=== PATIENT | male | born 1960 | race Caucasian/White ===

== ENCOUNTER → 2017-05-25 | Outpatient (CLI) | payer OTHER ==
--- NOTE | 2017-05-25 09:35 | US ---
EXAMINATION TYPE: US abdomen limited DATE OF EXAM: 05/25/2017 COMPARISON: CT, US 2009 CLINICAL HISTORY: R07.9 CHEST PAIN. Had episode chest pain which radiated to umbilical area; denies c hest pain today; HTN EXAM MEASUREMENTS: Liver Length: 13.8 cm Gallbladder Wall: 0.2 cm CBD: 0.4 cm Right Kidney: 11.3 x 6.3 x 5.4 cm Pancreas: hyperechoic Liver: There is mild coarsening and hyperechogenicity of the hepatic parenchyma with diminished visu alization of the portal triads and geographic regions of hypoattenuation involving caudate lobe and a n segment IVb. Gallbladder: wnl Evidence for sonographic Shi's sign: No CBD: wnl Right Kidney: wnl IMPRESSION: Mild hepatic steatosis with focal areas of hypoattenuation involving the caudate lobe and segment IVb of the liver, most commonly relating to focal fatty sparing. These areas are not definitely identifi ed on the prior CT, however this was dated 08/01/2010. If there is clinical concern dynamic enhanced abdominal CT or MR could be performed (liver mass protocol).
== END | disposition home or self-care (01) ==
LOC: RADUSWWP 08:19
PROVIDERS: ATTEND Family Medicine
DX: K76.0 Fatty (change of) liver, not elsewhere classified (principal); R07.9 Chest pain, unspecified
CPT/HCPCS: 76705

== ENCOUNTER → 2017-06-01 | Outpatient (CLI) | payer OTHER ==
--- NOTE | 2017-06-01 08:42 | CT ---
EXAMINATION TYPE: CT abdomen pelvis w con DATE OF EXAM: 06/01/2017 COMPARISON: 1025 HISTORY: Abdominal pain CT DLP: 1299 mGycm CONTRAST: CT scan of the abdomen and pelvis is performed with Oral Contrast and with IV Contrast, patient injec jen with 100 ml mL of Omnipaque 300. FINDINGS: LUNG BASES-: No visible nodule. No infiltrate. There is evidence of mild cardiomegaly. LIVER/GB: No calcified gallstones. No space occupying hepatic lesion. Biliary tree is of normal ca liber. PANCREAS: No inflammation. No distinct mass. SPLEEN: No splenic enlargement. No lesion seen. ADRENALS: No nodule. No thickening. KIDNEYS/BLADDER: No hydronephrosis. No nephrolithiasis. No disctinct renal mass. Urinary bladder w all thickening may reflect underlying cystitis. Please note the urinary bladder is not ideally disten ded however. BOWEL: Normal appendix. Normal bowel caliber. No inflammation. Diverticulosis of the sigmoid colon without diverticulitis. GENITAL ORGANS: No gross abnormality. LYMPH NODES: No greater than 1cm abdominal or pelvic lymph nodes are appreciated. AORTA: No significant abnormality. OSSEOUS STRUCTURES: No significant abnormality is seen. OTHER: No significant additional abnormality is seen. IMPRESSION: 1. Correlate for cystitis. 2. Sigmoid diverticulosis without diverticulitis.
== END ==
LOC: RADCTMAIN 06:48
PROVIDERS: ATTEND Family Medicine
DX: K57.30 Diverticulosis of large intestine without perforation or abscess without bleeding (principal)
CPT/HCPCS: 74177; Q9967

== ENCOUNTER 2019-10-24 17:02 | Observation (INO) | payer BC ==
[2019-10-24 18:08] LABS: Basophils # (A) 0.1 k/uL (0-0.2); Basophils % (A) 1 %; Eosinophils # (A) 0.2 k/uL (0-0.7); Eosinophils % (A) 3 %; HCT 47.5 % (39.0-53.0); HGB 15.9 gm/dL (13.0-17.5); Lymphocytes # (A) 2.4 k/uL (1.0-4.8); Lymphocytes % (A) 32 %; MCH 32.8 pg (25.0-35.0); MCHC 33.4 g/dL (31.0-37.0); MCV 98.1 fL (80.0-100.0); Mean Platelet Volume 7.5; Monocytes # (A) 0.5 k/uL (0-1.0); Monocytes % (A) 7 %; Neutrophils # (A) 4.1 k/uL (1.3-7.7); Neutrophils % (A) 55 %; Platelet Count 299 k/uL (150-450); RBC 4.84 m/uL (4.30-5.90); RDW 13.3 % (11.5-15.5); WBC 7.4 k/uL (3.8-10.6)
[2019-10-24 18:21] LABS: Partial Thromboplastin Time 24.3 sec (22.0-30.0); Prothrombin Time 10.1 sec (9.0-12.0)
[2019-10-24 18:23] LABS: ALT 25 U/L (4-49); AST 31 U/L (17-59); African American GFR (CKD) >90 (>60 ml/min/1.73 sqM); Albumin 3.7 g/dL (3.5-5.0); Alkaline Phosphatase 107 U/L (38-126); Anion Gap 6 mmol/L; Blood Urea Nitrogen 14 mg/dL (9-20); Calcium 8.8 mg/dL (8.4-10.2); Carbon Dioxide 22 mmol/L (22-30); Chloride 109 mmol/L (98-107); Glucose 81 mg/dL (74-99); Magnesium 2.1 mg/dL (1.6-2.3); Non-African American GFR(CKD) >90 (>60 ml/min/1.73 sqM); Potassium 4.6 mmol/L (3.5-5.1); Sodium 137 mmol/L (137-145); Total Bilirubin 0.4 mg/dL (0.2-1.3); Total Protein 6.5 g/dL (6.3-8.2)
--- NOTE | 2019-10-24 18:40 | CT ---
EXAMINATION TYPE: CT angio thor/abd pel aorta DATE OF EXAM: 10/24/2019 COMPARISON: HISTORY: Chest pain with bilateral arm numbness. CT DLP: 2007.7 mGycm Automated exposure control for dose reduction was used. CONTRAST: Performed with IV Contrast, patient injected with 100 mL of Isovue 370. Multiple axial sections were obtained from the thoracic inlet to the floor the pelvis without and sub sequently with intravenous contrast. There are 3-D post processed images. There are a few small low-density calcifications in the right kidney. There is no hydronephrosis. The lungs are clear of infiltrate. There is no evidence of a pulmonary mass. Heart size is fairly normal . There is no pericardial effusion. There is no pleural effusion. There is no mediastinal adenopathy. Liver spleen stomach pancreas gallbladder appear normal. Bile ducts are not dilated. There is satisfa ctory contrast opacification of the kidneys. There is no hydronephrosis. There is no adrenal mass. There is no retroperitoneal adenopathy. There are numerous sigmoid diverticula. Bladder distends smoo thly. There is no inguinal hernia. There is no free fluid in the pelvis. There is normal contrast opacification of the thoracic aorta. There is no aneurysm or dissection. The ascending aorta measures 3.8 cm. I see no filling defects in the pulmonary arteries. There are no hi lar masses. There is patency of the celiac artery and superior mesenteric artery. There is bilateral patency of t he renal arteries. There is variable plaque formation in the lower abdominal aorta. There is no abdom inal aortic aneurysm. There is posterior plaque in the lower abdominal aorta that measures up to 9 mm . There is arterial flow in the iliac and femoral arteries bilaterally. There is extensive plaque forma tion in the iliac arteries with lumen narrowing in multiple segments up to 50%. There is bilateral ar terial flow in the proximal femoral arteries. Bony pelvis is intact. Thoracic and lumbar spine are intact. The bony thorax is intact. There is no e vidence of compression fracture in the spine. Shoulder joints are intact. IMPRESSION: No evidence of aortic aneurysm or dissection. Atherosclerotic vascular disease as above. Multiple are as of stenosis up to 50% in the iliac arteries. Sigmoid diverticulosis without diverticulitis.
--- NOTE | 2019-10-24 18:51 | ED ---
Chest Pain HPI - General Chief Complaint: Chest Pain Stated Complaint: chest pain Time Seen by Provider: 10/24/19 17:35 Source: patient, EMS Mode of arrival: EMS Limitations: no limitations - History of Present Illness Initial Comments: The patient is a 59-year-old male with past medical history of hypertension who presents to the emergency room with reported chest pain. He states that his symptoms started yesterday. It is a sharp cramping sensation which began in his abdomen and has progressed up to his chest. It is intermittent in nature. Owen es any provocative factors. He does not take any medications for his symptoms. Pain did reoccur today and this made him fearful therefore he went into Dr. Florentino's office. Dr. Florentino performed EKG and had the patient transferred to the hospital for further evaluation. He denies previous history of cardiac disease or arrhythmia. He is a smoker with history of high blood pressure. States he smokes 2 packs a day. Also has a large family history of cardiac disease. Denies previous stress testing or catheterization. No active chest pain at this time. He did receive 324 mg of chewable aspirin from EMS and 2 nitro. States the nitro did prove his symptoms significantly. He admits to associated diaphoresis and nausea. Denies any vomiting. States the pain does radiate in between his shoulder blades into his left shoulder. Does have numbness and tingling in his bilateral upper extremities. No lower abdominal pain. Denies any pain into his lower extremity. No calf pain or swelling. No pedal edema. Denies any fevers or chills. No cough or hemoptysis. No history of DVT or PE. There are no alleviating, precipitating or modifying factors - Related Data Home Medications Medication Instructions Recorded Confirmed Lisinopril [Zestril] 10 mg PO QAM 05/15/16 10/24/19 Magnesium Oxide [Mag-Ox] 250 mg PO DAILY 10/24/19 10/24/19 Omeprazole 20 mg PO DAILY 10/24/19 10/24/19 valACYclovir [Valtrex] 500 mg PO DAILY 10/24/19 10/24/19 Previous Rx's Medication Instructions Recorded Nicotine 21Mg/24Hr Patch [Habitrol] 1 each TRANSDERM DAILY #30 patch 10/25/19 Allergies Allergy/AdvReac Type Severity Reaction Status Date / Time No Known Allergies Allergy Verified 10/24/19 19:08 Review of Systems ROS Statement: Those systems with pertinent positive or pertinent negative responses have been documented in the HPI. ROS Other: All systems not noted in ROS Statement are negative. EKG Findings - EKG Comments: EKG Findings:: EKG performed at 1710 and demonstrates a sinus rhythm with frequent PVCs. Rate of 94. NM interval 178. QRS 78. QTC of 500. No acute ST segment elevations. There are inverted T waves with some depression in 2, 3 and aVF. Also some mild depression in V5 and V6. Repeat EKG performed at 1741 demonstrates a sinus rhythm with frequent PVCs. NM interval 136. QRS 84. QTC of 510. No acute ST segment elevations patient's. Continues to have some inverted T waves with depressions in the inferior and lateral leads Past Medical History Past Medical History: GERD/Reflux, Hypertension, Skin Disorder Additional Past Medical History / Comment(s): hx colon polyps,psoriasis,lt eye prosthesis-chicken pox as a child affected retina History of Any Multi-Drug Resistant Organisms: None Reported Additional Past Surgical History / Comment(s): states "I think he had appendix out but not sure if any others",colonoscopy,lt eye surgery Past Anesthesia/Blood Transfusion Reactions: No Reported Reaction Smoking Status: Current every day smoker - Past Family History Mother Family Medical History: Cancer Additional Family Medical History / Comment(s): breast General Exam Limitations: no limitations General appearance: alert, in no apparent distress Head exam: Present: atraumatic, normocephalic, normal inspection Eye exam: Present: normal appearance, PERRL, EOMI. Absent: scleral icterus, conjunctival injection, periorbital swelling ENT exam: Present: normal exam, mucous membranes moist Neck exam: Present: normal inspection. Absent: tenderness, meningismus, lymphadenopathy Respiratory exam: Present: normal lung sounds bilaterally. Absent: respiratory distress, wheezes, rales, rhonchi, stridor Cardiovascular Exam: Present: regular rate, normal rhythm, normal heart sounds. Absent: systolic murmur, diastolic murmur, rubs, gallop, clicks GI/Abdominal exam: Present: soft, normal bowel sounds. Absent: distended, tenderness, guarding, rebound, rigid Extremities exam: Present: normal inspection, full ROM, normal capillary refill. Absent: tenderness, pedal edema, joint swelling, calf tenderness Back exam: Present: normal inspection Neurological exam: Present: alert, oriented X3, CN II-XII intact Psychiatric exam: Present: normal affect, normal mood Skin exam: Present: warm, dry, intact, normal color. Absent: rash Course Vital Signs 10/24/19 10/24/19 10/24/19 17:35 20:20 21:03 Temperature 98.5 F 98.5 F Pulse Rate 100 109 H 96 Respiratory 18 18 18 Rate Blood Pressure 172/102 184/106 136/87 O2 Sat by Pulse 98 98 99 Oximetry Chest Pain MDM - MDM Upon arrival patient is placed into room 3. A thorough history and physical exam was performed. EKG from the office is reviewed. He did complete an EKG which demonstrates no acute findings. The patient is chest pain-free at this time. I did recommend laboratory studies and a CT of the patient's thorax because of his reported intrascapular pain with numbness of his upper extremities. Laboratory studies demonstrate a normal CBC. Coagulation studies are normal. CMP is unremarkable. BNP is 426. First troponin is negative. Thoracic aorta CT demonstrates no evidence of aortic aneurysm or dissection. Atherosclerotic vascular disease with multiple areas of stenosis up to 50% and the iliac arteries. Sigmoid diverticulosis without diverticulitis. Discussed this with the patient. He continues to remain pain free. This patient does have a history of hypertension, smoking with family history of cardiac disease I did recommend hospitalization in order to trend the patient's troponins have a cardiology consult. If the patient does have diffuse T-wave inversions and depression I did feel to the patient's best interest heparinize him. He does not have any contraindications to heparinization. I discussed the diagnosis, differential and treatment plan with the patient he was agreeable. He will be admitted to [facility]. I discussed the case with Kate who accepted admission. Patient was then transferred to the floor in stable condition Critical Care Time Critical Care Time: Yes Critical Care Time: 35 minutes as patient was initiated on a heparin drip for possible ACS. He received multiple reassessments to ensure he tolerated the drip and had no return of his pain. Disposition Clinical Impression: Chest pain Disposition: ADMITTED IP TO THIS [facility] Condition: Stable Is patient prescribed a controlled substance at d/c from ED?: No Decision to Admit Reason: Admit from EC Decision Date: 10/24/19 Decision Time: 19:38
[2019-10-24] MEDS ORDERED: NALOXONE 0.4 MG/ML 1 ML VIAL IV PRN (19:38)
[2019-10-24] MEDS ORDERED: HEPARIN SODIUM,PORCINE 5,000 UNIT/ML 1 ML VIAL IV PRN (19:46)
[2019-10-24] MEDS ORDERED: HEPARIN SODIUM,PORCINE 5,000 UNIT/ML 1 ML VIAL IV ONE (19:46)
[2019-10-24] MEDS ORDERED: HEPARIN SOD,PORK IN 0.45% NACL 25,000 UNIT in 0.45% NACL 1 250ML.BAG IV SCH (20:00)
[2019-10-24] MEDS ORDERED: LABETALOL SYRINGE 5 MG/ML IVP STA (20:10)
[2019-10-24] MEDS ORDERED: LABETALOL 5 MG/ML VIAL MDV IVP STA (20:54)
[2019-10-25 04:20] VITALS: RESP 16
[2019-10-25 06:00] LABS: Basophils % (A) 1 %; Eosinophils # (A) 0.1 k/uL (0-0.7); Eosinophils % (A) 2 %; HCT 45.9 % (39.0-53.0); HGB 15.3 gm/dL (13.0-17.5); Lymphocytes % (A) 35 %; MCH 33.1 pg (25.0-35.0); MCHC 33.3 g/dL (31.0-37.0); MCV 99.5 fL (80.0-100.0); Mean Platelet Volume 7.6; Monocytes # (A) 0.4 k/uL (0-1.0); Monocytes % (A) 8 %; Neutrophils % (A) 53 %; Platelet Count 265 k/uL (150-450); RBC 4.61 m/uL (4.30-5.90); RDW 13.3 % (11.5-15.5); WBC 5.6 k/uL (3.8-10.6)
[2019-10-25 06:08] LABS: Prothrombin Time 10.6 sec (9.0-12.0)
[2019-10-25 06:17] LABS: African American GFR (CKD) >90 (>60 ml/min/1.73 sqM); Anion Gap 5 mmol/L; Blood Urea Nitrogen 11 mg/dL (9-20); Calcium 8.5 mg/dL (8.4-10.2); Carbon Dioxide 26 mmol/L (22-30); Chloride 108 mmol/L (98-107); Glucose 99 mg/dL (74-99); Non-African American GFR(CKD) >90 (>60 ml/min/1.73 sqM); Potassium 4.2 mmol/L (3.5-5.1); Sodium 139 mmol/L (137-145)
[2019-10-25] MEDS ORDERED: PANTOPRAZOLE 40 MG TABLET PO SCH (07:30)
--- NOTE | 2019-10-25 08:21 | P.CRDCN ---
History of Present Illness Consult date: 10/25/19 Chief complaint: Chest pain History of present illness: This is a very pleasant 59-year-old gentleman with a past medical history significant for hypertension presented to the emergency room complaining of chest discomfort. Few days before, he was experiencing symptoms of abdominal discomfort and the following day the discomfort was radiating to his chest. He described it as a sharp, no radiation to the arms or neck or shoulders, and no associated symptoms of shortness of breath, sweating, dizziness, or syncope. No history of coronary artery disease or congestive heart failure or cardiac arrhythmia. The patient does have history of hypertension as well as history of smoking. No immediate family member was coronary artery disease. No prior heart catheterization. Currently he is chest pain-free. The EKG showed sinus rhythm without any significant ST or T-wave abnormalities. The cardiac enzymes came in to be unremarkable. I advised the patient to undergo a stress test but it's because its Sunday, stress test, be done. The patient would like to be discharged home and have the test as an outpatient. Having said that I am going to get the patient up and around and if he is asymptomatic he possibly, go home and have the test as an outpatient. Past Medical History Past Medical History: GERD/Reflux, Hypertension, Skin Disorder Additional Past Medical History / Comment(s): hx colon polyps,psoriasis,lt eye prosthesis-chicken pox as a child affected retina History of Any Multi-Drug Resistant Organisms: None Reported Past Surgical History: Appendectomy Additional Past Surgical History / Comment(s): states "I think he had appendix out but not sure if any others",colonoscopy,lt eye surgery Past Anesthesia/Blood Transfusion Reactions: No Reported Reaction Smoking Status: Current every day smoker - Past Family History Mother Family Medical History: Cancer Additional Family Medical History / Comment(s): breast Medications and Allergies Home Medications Medication Instructions Recorded Confirmed Type Lisinopril [Zestril] 10 mg PO QAM 05/15/16 10/24/19 History Magnesium Oxide [Mag-Ox] 250 mg PO DAILY 10/24/19 10/24/19 History Omeprazole 20 mg PO DAILY 10/24/19 10/24/19 History valACYclovir [Valtrex] 500 mg PO DAILY 10/24/19 10/24/19 History Allergies Allergy/AdvReac Type Severity Reaction Status Date / Time No Known Allergies Allergy Verified 10/24/19 19:08 Physical Exam Vitals: Vital Signs Temp Pulse Pulse Resp BP BP Pulse Ox 10/25/19 04:00 98.2 F 76 16 123/77 95 10/25/19 03:30 82 18 10/25/19 00:00 98.0 F 101 H 18 148/84 96 10/24/19 23:33 85 16 10/24/19 22:03 55 L 16 10/24/19 21:26 98.0 F 55 L 16 150/92 97 10/24/19 21:03 98.5 F 96 18 136/87 99 10/24/19 20:20 109 H 18 184/106 98 10/24/19 17:35 98.5 F 100 18 172/102 98 Intake and Output 10/24/19 10/25/19 10/25/19 22:59 06:59 14:59 Intake Total 67.933 Balance 67.933 Intake: Intake, IV Titration 67.933 Amount Heparin Sod,Pork in 0.45% 67.933 NaCl 25,000 unit In 0.45 % NaCl 1 250ml.bag @ 12 UNITS/KG/HR 9.798 mls/hr IV .Q24H [facility] Rx#: [id number] Other: # Voids 1 Weight 81.647 kg - Constitutional General appearance: no acute distress - Respiratory Respiratory: bilateral: CTA - Cardiovascular Rhythm: regular Heart sounds: normal: S1, S2 Results 10/25/19 05:39 10/25/19 05:39 Cardiac Enzymes 10/24/19 10/24/19 10/24/19 Range/Units 17:55 17:55 23:59 AST 31 (17-59) U/L Troponin I <0.012 <0.012 (0.000-0.034) ng/mL 10/25/19 Range/Units 05:39 AST (17-59) U/L Troponin I <0.012 (0.000-0.034) ng/mL Coagulation 10/24/19 10/25/19 10/25/19 Range/Units 17:55 02:31 05:39 PT 10.1 10.6 (9.0-12.0) sec APTT 24.3 36.7 H (22.0-30.0) sec CBC 10/24/19 10/25/19 Range/Units 17:55 05:39 WBC 7.4 5.6 (3.8-10.6) k/uL RBC 4.84 4.61 (4.30-5.90) m/uL Hgb 15.9 15.3 (13.0-17.5) gm/dL Hct 47.5 45.9 (39.0-53.0) % Plt Count 299 265 (150-450) k/uL Comprehensive Metabolic Panel 10/24/19 10/25/19 Range/Units 17:55 05:39 Sodium 137 139 (137-145) mmol/L Potassium 4.6 4.2 (3.5-5.1) mmol/L Chloride 109 H 108 H (98-107) mmol/L Carbon Dioxide 22 26 (22-30) mmol/L BUN 14 11 (9-20) mg/dL Creatinine 0.63 L 0.69 (0.66-1.25) mg/dL Glucose 81 99 (74-99) mg/dL Calcium 8.8 8.5 (8.4-10.2) mg/dL AST 31 (17-59) U/L ALT 25 (4-49) U/L Alkaline Phosphatase 107 (38-126) U/L Total Protein 6.5 (6.3-8.2) g/dL Albumin 3.7 (3.5-5.0) g/dL Current Medications Generic Name Dose Route Start Last Admin Trade Name Freq PRN Reason Stop Dose Admin Heparin Sodium (Porcine) 0 unit 10/24/19 19:46 Heparin IV PER PROTOCOL PRN Low PTT Protocol Heparin Sodium/Sodium Chloride 250 mls @ 9.798 mls/hr 10/24/19 20:00 10/25/19 03:53 25,000 unit/ Sodium Chloride IV 15 units/kg/hr .Q24H [facility] 12.247 mls/hr Titration Protocol 12 UNITS/KG/HR Lisinopril 10 mg 10/25/19 09:00 Zestril PO QAM ANNA Magnesium Oxide 400 mg 10/25/19 09:00 Mag-Ox PO DAILY ANNA Naloxone HCl 0.2 mg 10/24/19 19:38 Narcan IV Q2M PRN Opioid Reversal Pantoprazole Sodium 40 mg 10/25/19 07:30 Protonix PO AC-BRKFST ANNA Valacyclovir HCl 500 mg 10/25/19 09:00 Valtrex PO DAILY ANNA Intake and Output 10/24/19 10/25/19 10/25/19 22:59 06:59 14:59 Intake Total 67.933 Balance 67.933 Intake: Intake, IV Titration 67.933 Amount Heparin Sod,Pork in 0.45% 67.933 NaCl 25,000 unit In 0.45 % NaCl 1 250ml.bag @ 12 UNITS/KG/HR 9.798 mls/hr IV .Q24H [facility] Rx#: [id number] Other: # Voids 1 Weight 81.647 kg 10/25/19 05:39 10/25/19 05:39 Assessment and Plan Assessment: Assessment #1 epigastric discomfort #2 hypertension #3 history of smoking Plan #1 acute coronary event was ruled out #2 the patient need to have a stress test #3 he would like to go home and have the test as an outpatient Thank you for allowing us participate in his care
[2019-10-25] MEDS ORDERED: MAGNESIUM OXIDE 400 MG TAB PO SCH (09:00)
[2019-10-25] MEDS ORDERED: LISINOPRIL 10 MG TAB PO SCH (09:00)
[2019-10-25] MEDS ORDERED: valACYclovir 500 MG TAB PO SCH (09:00)
[2019-10-25 12:37] VITALS: BP 129/60; PULSE 81; TEMP 98.3
--- NOTE | 2019-10-25 14:28 | P.HPIM ---
History of Present Illness Diagnoses: Chest pain, rule out cardiac causes Nicotine dependence Alcohol abuse Aortic atherosclerosis with stenosis of up to 50% of iliac arteries Hypertension GERD Psoriasis This is a pleasant 59 years old male with past medical history of GERD, hypertension, psoriasis. Presents because of chest pain, on and off for 2 days in the lower chest and upper abdomen that is resolved now it was 8/10 but no any pain since yesterday after the EMS gave him some medicine. He denies ALLERGIES symptoms no dyspnea or coughing. No dizziness. No urinary or bowel habits. He has some low back pain but get up and go test is normal. Patient wants to go home. Patient smokes cigarettes and drinks alcohol/wine daily. He smokes about 1-2 packs per day, and he drinks about 2 cups of findings day. Patient was counseled extensively about quitting smoking and alcohol with the risks including but not limited to risk of cancer and heart disease and he agrees. He agrees to nicotine patch and the importance of quitting smoking and drinking. I offered him benzodiazepine taper but he refused to take it now as he is asymptomatic, however explain the symptoms for him and if he develops then he's instructed to come to emergency room or speak with his doctor Chadd immediately and he verbalized understanding and acceptance, was at bedside Vitals stable. Labs are unremarkable including CBC, BMP, liver enzymes, INR. Serial troponins are negative at less than 0.012. CT of the thoracic aorta: No aneurysm or dissection, no filling defect and pulmonary arteries, atherosclerotic vascular disease, iliac artery stenosis up to 50% at certain areas, sigmoid diverticulosis. Patient has been evaluated by school psychological examiner and he recommending stress test of the heart as an outpatient as patient was to go home and his chest pain is re solved patient was cleared for discharge by school psychological examiner. Problems and management plan were discussed with the patient and he verbalized understanding and acceptance, at bedside upon patient request Patient was found stable and can be discharged home however he needs follow-up as an outpatient. Patient was instructed to follow up with PCP within one week and patient agrees CONSTITUTIONAL: No fever, no malaise, no fatigue. HEENT: No recent visual problems or hearing problems. Denied any sore throat. CARDIOVASCULAR: No orthopnea, PND, no palpitations, no syncope. PULMONARY: No shortness of breath, no cough, no hemoptysis. GASTROINTESTINAL: No diarrhea, no nausea, no vomiting, no abdominal pain. Normoactive bowel sounds. NEUROLOGICAL: No headaches, no weakness, no numbness. HEMATOLOGICAL: Denies any bleeding or petechiae. GENITOURINARY: Denies any burning micturition, frequency, or urgency. MUSCULOSKELETAL/RHEUMATOLOGICAL: Denies any joint pain, swelling, or any muscle pain. ENDOCRINE: Denies any polyuria or polydipsia. GENERAL: The patient is alert and oriented x3, not in any acute distress. Well developed, well nourished. HEENT: Pupils are round and equally reacting to light. EOMI. No scleral icterus. No conjunctival pallor. Normocephalic, atraumatic. No pharyngeal erythema. No thyromegaly. CARDIOVASCULAR: S1 and S2 present. No murmurs, rubs, or gallops. PULMONARY: Chest is clear to auscultation, no wheezing or crackles. ABDOMEN: Soft, nontender, nondistended, normoactive bowel sounds. No palpable organomegaly. MUSCULOSKELETAL: No joint swelling or deformity. EXTREMITIES: No cyanosis, clubbing, or pedal edema. NEUROLOGICAL: Gross neurological examination did not reveal any focal deficits. SKIN: No rashes. No petechiae Time spent more than 35 minutes Past Medical History Past Medical History: GERD/Reflux, Hypertension, Skin Disorder Additional Past Medical History / Comment(s): hx colon polyps,psoriasis,lt eye prosthesis-chicken pox as a child affected retina History of Any Multi-Drug Resistant Organisms: None Reported Past Surgical History: Appendectomy Additional Past Surgical History / Comment(s): states "I think he had appendix out but not sure if any others",colonoscopy,lt eye surgery Past Anesthesia/Blood Transfusion Reactions: No Reported Reaction Smoking Status: Current every day smoker - Past Family History Mother Family Medical History: Cancer Additional Family Medical History / Comment(s): breast Medications and Allergies Home Medications Medication Instructions Recorded Confirmed Type Lisinopril [Zestril] 10 mg PO QAM 05/15/16 10/24/19 History Magnesium Oxide [Mag-Ox] 250 mg PO DAILY 10/24/19 10/24/19 History Omeprazole 20 mg PO DAILY 10/24/19 10/24/19 History valACYclovir [Valtrex] 500 mg PO DAILY 10/24/19 10/24/19 History Allergies Allergy/AdvReac Type Severity Reaction Status Date / Time No Known Allergies Allergy Verified 10/24/19 19:08 Physical Exam Vitals: Vital Signs Temp Pulse Pulse Resp BP BP Pulse Ox 10/25/19 12:33 98.3 F 81 16 129/60 10/25/19 08:15 98.0 F 77 16 133/82 96 10/25/19 04:00 98.2 F 76 16 123/77 95 10/25/19 03:30 82 18 10/25/19 00:00 98.0 F 101 H 18 148/84 96 10/24/19 23:33 85 16 10/24/19 22:03 55 L 16 10/24/19 21:26 98.0 F 55 L 16 150/92 97 10/24/19 21:03 98.5 F 96 18 136/87 99 10/24/19 20:20 109 H 18 184/106 98 10/24/19 17:35 98.5 F 100 18 172/102 98 Intake and Output 10/24/19 10/25/19 10/25/19 22:59 06:59 14:59 Intake Total 67.933 Balance 67.933 Intake: Intake, IV Titration 67.933 Amount Heparin Sod,Pork in 0.45% 67.933 NaCl 25,000 unit In 0.45 % NaCl 1 250ml.bag @ 12 UNITS/KG/HR 9.798 mls/hr IV .Q24H [facility] Rx#: [id number] Other: Voiding Method Toilet # Voids 1 1 Weight 81.647 kg Results CBC & Chem 7: 10/25/19 05:39 10/25/19 05:39 Labs: Abnormal Lab Results - Last 24 Hours (Table) 10/24/19 10/25/19 10/25/19 Range/Units 17:55 02:31 05:39 APTT 36.7 H (22.0-30.0) sec Chloride 109 H 108 H (98-107) mmol/L Creatinine 0.63 L (0.66-1.25) mg/dL Thrombosis Risk Factor Assmnt - Choose All That Apply Any of the Below Risk Factors Present?: Yes Each Factor Represents 1 point: Acute NM, Age 41-60 years, Obesity (BMI >25) Other Risk Factors: No Other congenital or acquired thrombophilia - If yes, enter type in comment: No Thrombosis Risk Factor Assessment Total Risk Factor Score: 3 Thrombosis Risk Factor Assessment Level: Moderate Risk
[2019-10-25] MEDS ORDERED: NICOTINE 21MG/24HR PATCH TRANSDERM STA (14:29)
== END 2019-10-25 15:53 | disposition home or self-care (01) ==
LOC: EC 17:02 → 1SOBS 19:38
PROVIDERS: ADMIT Hospitalist; ATTEND Hospitalist
DX: R07.89 Other chest pain (principal); F17.210 Nicotine dependence, cigarettes, uncomplicated; I10 Essential (primary) hypertension; F10.10 Alcohol abuse, uncomplicated; I70.0 Atherosclerosis of aorta; K21.9 Gastro-esophageal reflux disease without esophagitis; K57.30 Diverticulosis of large intestine without perforation or abscess without bleeding; L40.9 Psoriasis, unspecified; Z82.49 Family history of ischemic heart disease and other diseases of the circulatory system; Z87.19 Personal history of other diseases of the digestive system; Z97.0 Presence of artificial eye; Z79.899 Other long term (current) drug therapy; Z71.6 Tobacco abuse counseling; Z71.41 Alcohol abuse counseling and surveillance of alcoholic
CPT/HCPCS: 93005 ×2; 96366 ×2; 96376; 96365; 96375; 99291; 36415; 83880; 80053; 80048; 83690; 83735; 84484 ×2; 85025 ×2; 85610 ×2; 85730 ×2; 71275; 74174; G0378 ×2; J1644 ×2; Q9967

== ENCOUNTER → 2021-05-04 | Outpatient (CLI) | payer OTHER ==
[2021-05-04 16:34] LABS: HCT 45.2 % (39.0-53.0); HGB 15.2 gm/dL (13.0-17.5); MCH 32.5 pg (25.0-35.0); MCHC 33.5 g/dL (31.0-37.0); Mean Platelet Volume 7.8; Platelet Count 368 k/uL (150-450); RBC 4.66 m/uL (4.30-5.90); WBC 7.4 k/uL (3.8-10.6)
[2021-05-04 16:43] LABS: African American GFR (CKD) >90 (>60 ml/min/1.73 sqM); Anion Gap 9 mmol/L; Blood Urea Nitrogen 20 mg/dL (9-20); Carbon Dioxide 25 mmol/L (22-30); Chloride 105 mmol/L (98-107); Non-African American GFR(CKD) >90 (>60 ml/min/1.73 sqM); Potassium 4.6 mmol/L (3.5-5.1); Sodium 139 mmol/L (137-145)
== END | disposition home or self-care (01) ==
LOC: LABPAT 15:48
PROVIDERS: ATTEND Internal Medicine Interventional Cardiology
DX: Z01.812 Encounter for preprocedural laboratory examination (principal); I35.0 Nonrheumatic aortic (valve) stenosis
CPT/HCPCS: 80051; 82565; 84520; 85027

== ENCOUNTER 2021-05-05 06:07 | Day surgery (SDC) | payer OTHER ==
[2021-05-03 11:26] VITALS: BMI 26.6
[~2021-05-05 06:07] MED LIST: ALPRAZolam 0.25 MG TAB PO PRN; ALPRAZolam 0.5 MG TAB PO PRN; ASPIRIN 325 MG TAB PO STA; ATORVASTATIN 80 MG TAB PO STA; HEPARIN SODIUM,PORCINE 10,000 UNIT in SODIUM CHLORIDE 0.9% 1,000 ML IRRIGATION PRN; HEPARIN SODIUM,PORCINE 2,500 UNIT in SODIUM CHLORIDE 0.9% 250 ML IRRIGATION PRN; NITROGLYCERIN SL TABS 0.4 MG TAB SUBLINGUAL PRN; SODIUM CHLORIDE 0.9% 1,000 ML in EMPTY BAG 1 BAG IV ONE
[2021-05-05 06:45] VITALS: RESP 18; TEMP 98.2
[2021-05-05 06:51] LABS: Basophils % (A) 0 %; Eosinophils # (A) 0.2 k/uL (0-0.7); Eosinophils % (A) 2 %; HCT 49.8 % (39.0-53.0); HGB 16.3 gm/dL (13.0-17.5); Lymphocytes # (A) 1.9 k/uL (1.0-4.8); Lymphocytes % (A) 27 %; MCH 31.7 pg (25.0-35.0); MCHC 32.6 g/dL (31.0-37.0); MCV 97.2 fL (80.0-100.0); Mean Platelet Volume 8.4; Monocytes # (A) 0.6 k/uL (0-1.0); Monocytes % (A) 9 %; Neutrophils # (A) 4.1 k/uL (1.3-7.7); Neutrophils % (A) 59 %; Platelet Count 331 k/uL (150-450); RBC 5.12 m/uL (4.30-5.90); RDW 13.6 % (11.5-15.5)
[2021-05-05 06:58] LABS: African American GFR (CKD) >90 (>60 ml/min/1.73 sqM); Anion Gap 9 mmol/L; Blood Urea Nitrogen 16 mg/dL (9-20); Calcium 9.8 mg/dL (8.4-10.2); Carbon Dioxide 23 mmol/L (22-30); Chloride 107 mmol/L (98-107); Glucose 118 mg/dL (74-99); Non-African American GFR(CKD) >90 (>60 ml/min/1.73 sqM); Potassium 4.6 mmol/L (3.5-5.1); Sodium 139 mmol/L (137-145)
[2021-05-05] MEDS ORDERED: LIDOCAINE 1% INJ 10MG/ML (20 ML MDV) ONE (07:16)
[2021-05-05] MEDS ORDERED: HEPARIN SODIUM 1,000 UN/ML (10ML VL) ONE (07:16)
[2021-05-05] MEDS ORDERED: VERAPAMIL 2.5 MG/ML 2 ML AMP ONE (07:16)
[2021-05-05] MEDS ORDERED: MIDAZOLAM 2 MG/2 ML VIAL IV ONE (07:44)
[2021-05-05] MEDS ORDERED: LIDOCAINE 1% INJ 10MG/ML (20 ML MDV) SQ ONE (07:47)
[2021-05-05] MEDS ORDERED: VERAPAMIL SYRINGE (5 MG/10 ML) INTRAARTER ONE (07:49)
[2021-05-05] MEDS ORDERED: IOPAMIDOL-370 125ML BTL INJ ONE (07:57)
[2021-05-05] MEDS ORDERED: RX INFO: IV CONTRAST WAS GIVEN 1 EACH MISC MISCELLANE PRN (08:04)
[2021-05-05] MEDS ORDERED: SODIUM CHLORIDE 0.9% 1,000 ML IV SCH (08:15)
--- NOTE | 2021-05-05 09:07 | CC ---
CARDIAC CATHETERIZATION REPORT DATE OF : 1960 DATE OF SERVICE: May 05, 2021. PROCEDURE PERFORMED: 1. Selective right and left coronary angiogram. 2. Left heart catheterization. INDICATION: Newly diagnosis cardiomyopathy. COMPLICATION: None. LEVEL OF SEDATION: Moderate with sedation length of 13 minutes. APPROACH: Right radial artery. PROCEDURE DESCRIPTION: After obtaining informed consent, the patient was brought to the cardiac laborer rags. The right radial artery was cannulated using micropuncture technique, the micropuncture wire passed easily, then I placed a 5-Fijian sheath at the right radial artery. I gave the patient 2 mg of verapamil IA and 8000 units of heparin IV. I did perform selective right and left coronary angiogram using JR4 and JL3.5 catheters. Left heart catheterization was performed using 5-Fijian pigtail catheter. The procedure was completed without any complication. SELECTIVE CORONARY ANGIOGRAM: 1. The RCA is calcified. The RCA has a lesion appeared to be in the range of 20% to 30%. Distally, it bifurcates into PDA and PLV branches. 2. The left main is a short left main. It bifurcates into left circumflex as well as left anterior descending artery. 3. The left circumflex proximally appeared to be angiographically normal. It gives rise into a large OM branch which has a lesion appeared to be in the range of 60% to 70%. The lesion is focal and calcified. 4. The LAD is a large caliber vessel. The LAD appeared to have mild disease only. It gives rise into multiple small diagonal branches. HEMODYNAMICS: LVEDP was 30-30 mmHg without significant gradient across the aortic valve. CONCLUSION: 1. Calcified right and left coronary system. 2. Intermediate lesion involving a large first obtuse marginal branch of the left circumflex appeared to be in the range of 60% to 70%. 3. Elevated LVEDP. 4. Tachycardia throughout the procedure. POSTPROCEDURE MANAGEMENT: 1. Continue to titrate the patient's beta rebeca. 2. Continue maximize medical treatment for the cardiomyopathy. 3. Aggressive cholesterol control. 4. Possible PCI of the left circumflex if the patient developed any chest pain or shortness of breath. 5. Follow up with the patient. MMODL / IJN: [id number] /
[2021-05-05 12:08] VITALS: BP 110/75; PULSE 74
== END 2021-05-05 12:59 | disposition home or self-care (01) ==
LOC: CATHCVL 06:07
PROVIDERS: ATTEND Internal Medicine Interventional Cardiology
DX: I42.9 Cardiomyopathy, unspecified (principal); R00.0 Tachycardia, unspecified; I10 Essential (primary) hypertension; F17.200 Nicotine dependence, unspecified, uncomplicated; Z79.82 Long term (current) use of aspirin
CPT/HCPCS: 93458; 80048; 85025; C1894; C1769; J2250; J2001; J1644; Q9967

== ENCOUNTER → 2021-07-19 | Outpatient (CLI) | payer OTHER ==
[2021-07-19 08:34] LABS: ALT 21 U/L (4-49); AST 28 U/L (17-59); African American GFR (CKD) >90 (>60 ml/min/1.73 sqM); Albumin 3.7 g/dL (3.5-5.0); Albumin/Globulin Ratio 1.3; Alkaline Phosphatase 95 U/L (38-126); Anion Gap 7 mmol/L; Blood Urea Nitrogen 13 mg/dL (9-20); Calcium 9.4 mg/dL (8.4-10.2); Carbon Dioxide 26 mmol/L (22-30); Chloride 107 mmol/L (98-107); Globulin 2.8 g/dL; Glucose 114 mg/dL (74-99); Magnesium 1.8 mg/dL (1.6-2.3); Non-African American GFR(CKD) >90 (>60 ml/min/1.73 sqM); Potassium 4.2 mmol/L (3.5-5.1); Sodium 140 mmol/L (137-145); Total Bilirubin 0.6 mg/dL (0.2-1.3); Total Protein 6.5 g/dL (6.3-8.2)
[2021-07-19 17:53] LABS: Chol/HDL Ratio 3.96 Ratio; LDL Cholesterol,Calculated 57.2 mg/dL (0.0-131.0)
== END | disposition home or self-care (01) ==
LOC: LABWHC1 07:22
PROVIDERS: ATTEND Nurse Practitioner Adult Health
DX: E78.5 Hyperlipidemia, unspecified (principal); I10 Essential (primary) hypertension
CPT/HCPCS: 36415; 80053; 80061; 83721; 83735

== ENCOUNTER → 2021-10-22 | Outpatient (CLI) | payer OTHER ==
[2021-10-22 22:29] LABS: African American GFR (CKD) 108.3 (60.0-200.0); Albumin 4.1 g/dL (3.8-4.9); Albumin/Globulin Ratio 1.68 (1.60-3.17); Anion Gap 10.5 mmol/L (10.00-18.00); BUN/Creat Ratio 14.69 Ratio (12.00-20.00); Blood Urea Nitrogen 12.9 mg/dL (9.0-27.0); Calcium 9.4 mg/dL (8.7-10.3); Carbon Dioxide 25.4 mmol/L (20.0-27.5); Globulin 2.5 g/dL (1.6-3.3); Magnesium 2.1 mg/dL (1.5-2.4); Non-African American GFR(CKD) 93.5 (60.0-200.0); Potassium 4.6 mmol/L (3.5-5.5); Total Bilirubin 0.3 mg/dL (0.30-1.20); Total Protein 6.6 g/dL (6.2-8.2)
== END | disposition home or self-care (01) ==
LOC: LABWHC1 10:59
PROVIDERS: ATTEND Nurse Practitioner Adult Health
DX: I10 Essential (primary) hypertension (principal)
CPT/HCPCS: 36415; 80053; 83735

== ENCOUNTER 2022-04-25 07:18 | Day surgery (SDC) | payer OTHER ==
[2022-04-21 15:48] VITALS: BMI 26.9
[~2022-04-25 07:18] MED LIST changes: -ALPRAZolam 0.25 MG TAB PO PRN; -ALPRAZolam 0.5 MG TAB PO PRN; -ASPIRIN 325 MG TAB PO STA; -ATORVASTATIN 80 MG TAB PO STA; -HEPARIN SODIUM,PORCINE 10,000 UNIT in SODIUM CHLORIDE 0.9% 1,000 ML IRRIGATION PRN; -HEPARIN SODIUM,PORCINE 2,500 UNIT in SODIUM CHLORIDE 0.9% 250 ML IRRIGATION PRN; +LACTATED RINGERS 1,000 ML IV SCH; -NITROGLYCERIN SL TABS 0.4 MG TAB SUBLINGUAL PRN; -SODIUM CHLORIDE 0.9% 1,000 ML in EMPTY BAG 1 BAG IV ONE
[2022-04-25 07:56] VITALS: TEMP 97
[2022-04-25] MEDS ORDERED: PROPOFOL 10 MG/ML 20 ML VIAL IV ONE (08:30)
--- NOTE | 2022-04-25 08:49 | P.PCN ---
Date of Procedure: 04/25/22 Procedure(s) Performed: BRIEF HISTORY: Patient is a 61-year-old pleasant male scheduled for an elective colonoscopy as a part of evaluation of prior history of colon polyps. As coloscopy was 5 years ago. PROCEDURE PERFORMED: Colonoscopy. PREOPERATIVE DIAGNOSIS: History of colon polyps IV sedation per Anesthesia. PROCEDURE: After informed consent was obtained, the patient, was brought into the endoscopy unit. IV sedation was administered by Anesthesia under continuous monitoring. Digital rectal examination was normal. Initially the Olympus CF-160 flexible video colonoscope was then inserted in the rectum, gradually advanced into the cecum without any difficulty. Careful examination was performed as the scope was gradually being withdrawn. Ileocecal valve and the appendiceal orifice were visualized and appeared normal. Prep was excellent. Mucosa of the cecum, ascending colon, transverse colon, descending colon, sigmoid colon, and rectum appeared normal. Scattered sigmoid diverticulosis. Retroflexion was performed in the rectum and no lesions were seen. The patient tolerated the procedure well. IMPRESSION: Normal-appearing colon from rectum to cecum with no evidence of colorectal neoplasia Scattered sigmoid diverticulosis. RECOMMENDATIONS: Findings of this examination were discussed with the patientas well as his family. He was advised to have a repeat colonoscopy in 5 years because of the prior history of colon polyps
[2022-04-25 09:16] VITALS: BP 126/74; PULSE 70; RESP 16
== END 2022-04-25 09:30 | disposition home or self-care (01) ==
LOC: ORWHC2ENDO 07:18
PROVIDERS: ATTEND Internal Medicine Gastroenterology
DX: K57.30 Diverticulosis of large intestine without perforation or abscess without bleeding (principal); Z86.010 Personal history of colon polyps; I25.10 Atherosclerotic heart disease of native coronary artery without angina pectoris; I10 Essential (primary) hypertension; I73.9 Peripheral vascular disease, unspecified; L40.9 Psoriasis, unspecified; K21.9 Gastro-esophageal reflux disease without esophagitis; Z91.030 Bee allergy status; Z90.49 Acquired absence of other specified parts of digestive tract; Z79.82 Long term (current) use of aspirin; Z79.899 Other long term (current) drug therapy; Z80.3 Family history of malignant neoplasm of breast
CPT/HCPCS: 45378; J2704

== ENCOUNTER → 2023-12-21 | Outpatient (CLI) | payer BC ==
[2023-12-22 04:33] LABS: ALT 22 U/L (10-49); AST 24 U/L (14-35); Albumin/Globulin Ratio 1.74 Ratio (1.60-3.17); Alkaline Phosphatase 107 U/L (41-126); Bilirubin, Conjugated <0.20 mg/dL (0.20-0.40); Bilirubin,Unconjugated >0 mg/dL (0.20-1.00); Globulin 2.3 g/dL (1.6-3.3); Total Bilirubin 0.2 mg/dL (0.3-1.2); Total Protein 6.3 g/dL (6.2-8.2)
== END | disposition home or self-care (01) ==
LOC: LABWHC1 15:00
PROVIDERS: ATTEND Internal Medicine Interventional Cardiology
DX: Z51.81 Encounter for therapeutic drug level monitoring (principal); Z79.899 Other long term (current) drug therapy
CPT/HCPCS: 36415; 80076; 84443

== ENCOUNTER → 2024-10-28 | Outpatient (CLI) | payer BC ==
[2024-10-28 19:21] LABS: ALT 16 U/L (10-49); AST 18 U/L (14-35); Albumin 4.1 g/dL (3.8-4.9); Albumin/Globulin Ratio 1.86 Ratio (1.60-3.17); Alkaline Phosphatase 102 U/L (41-126); Bilirubin, Conjugated <0.20 mg/dL (0.20-0.40); Globulin 2.2 g/dL (1.6-3.3); Total Bilirubin <0.2 mg/dL (0.3-1.2); Total Protein 6.3 g/dL (6.2-8.2)
== END | disposition home or self-care (01) ==
LOC: LABWHC1 14:54
PROVIDERS: ATTEND Internal Medicine Interventional Cardiology
DX: Z79.899 Other long term (current) drug therapy (principal)
CPT/HCPCS: 36415; 80076; 84443